=== PATIENT | female | born 1945 | race Caucasian/White ===

== ENCOUNTER 2017-04-11 16:21 | Inpatient (IN) | payer MEDICARE, OTHER ==
[~2017-04-11] VITALS: Ht 170.2 cm; Wt 78.1 kg
[~2017-04-11 16:21] MED LIST: ALBU1.25 NEB; ASPI1TAB69 PO; CEFT500T3 PO; FLUT1INH INH; METF1000 PO; OXYGENTANK NAS.CANULA; PRED20 PO; VENTAER INH; ZITH500T PO
[2017-04-11 16:25] VITALS: BP 137/80; PULSE 106; RESP 30; TEMP 98.3; O2SAT 88
--- NOTE | 2017-04-11 16:34 | PD ---
HPI Chief Complaint: shortness of breath Time Seen by Provider: 16:26 Travel History International Travel<30 days: No Contact w/Intl Traveler<30days: No Traveled to known affect area: No History of Present Illness HPI 71-year-old female with history of COPD on 2 L nasal cannula at night, diabetes , sent in by her primary care physician for shortness of breath. The patient present for the last several days she has been having increasing shortness of breath. She has had a nonproductive cough. She has not noted any fever. She is complaining of chest heaviness/tightness as well. She tried 3 albuterol nebulized treatments today at home without any improvement. No known history of cardiac disease. No history of DVT or PE. Shortness of breath is at rest, worse with exertion. PFSH Past Medical History Congestive Heart Failure: No COPD: Yes (EMPHYSEMA) Coronary Artery Disease: No Diabetes: Yes Herniated Disk: Yes Respiratory: Yes (COPD, BRONCHITIS) Pneumonia: Yes Sleep Apnea: Yes (DOES NOT WEAR CPAP AT HOME) : 1 Para: 1 Tubal Ligation: Yes Past Surgical History Tonsillectomy: Yes Other Surgery: Yes (POLYPECTOMY VIA COLONOSCOPY: 2016) Social History Alcohol Use: No Tobacco Use: Yes Substance Use: No Allergies-Medications (Allergen,Severity, Reaction): Coded Allergies: No Known Allergies (Unverified , 04/11/17) Reported Meds & Prescriptions Reported Meds & Active Scripts Active Oxygen tank (Oxygen) 1 Ea Tank 2 Liter VANIA.CANULA CONTINUOUS Oxygen Concentrator Portable Gaseous 2 L/min via Nasal Cannula Continuous For 99 months Reported Aspirin 81 Mg Chew 81 Mg CHEW DAILY Albuterol Neb (Albuterol Sulfate) 1.25 Mg/3 Ml Neb 1.25 Mg NEB Q4HR NEB PRN Metformin (Metformin HCl) 1,000 Mg Tab 1,000 Mg PO BIDPC With meals Ventolin Hfa 18 GM Inh (Albuterol Sulfate) 90 Mcg/Act Aer 2 Puff INH Q4H PRN Breo Ellipta Inh (Fluticasone/Vilanterol) 100-25 Mcg/Act Inh 1 Puff INH DAILY Use daily at the same time. Review of Systems Except as stated in HPI: all other systems reviewed are Neg Physical Exam Narrative GENERAL: Well-developed, well-nourished, moderate respiratory distress, speaking a few words at a time, pursed lip breathing. SKIN: Focused skin assessment warm/dry. HEAD: Atraumatic. Normocephalic. EYES: Pupils equal and round. No scleral icterus. No injection or drainage. ENT: Mucous membranes pink and moist. NECK: Trachea midline. No JVD. CARDIOVASCULAR: Regular rate and rhythm. RESPIRATORY: Moderate respiratory distress, speaking a few words at a time, pursed lip breathing, accessory muscle use, inspiratory and expiratory wheezes bilaterally. GASTROINTESTINAL: Abdomen soft, non-tender, nondistended. Hepatic and splenic margins not palpable. MUSCULOSKELETAL: No obvious deformities. No clubbing. No cyanosis. No edema. NEUROLOGICAL: Awake and alert. No obvious cranial nerve deficits. Motor grossly within normal limits. Normal speech. PSYCHIATRIC: Appropriate mood and affect; insight and judgment normal. Data Data Last Documented VS Vital Signs Date Time Temp Pulse Resp B/P Pulse Ox O2 Delivery O2 Flow Rate FiO2 04/11/17 18:09 22 96 Nasal Cannula 2 04/11/17 17:14 95 143/72 04/11/17 16:25 98.3 Orders Complete Blood Count With Diff (04/11/17 16:31) Comprehensive Metabolic Panel (04/11/17 16:31) B-Type Natriuretic Peptide (04/11/17 16:31) Act Partial Throm Time (Ptt) (04/11/17 16:31) Prothrombin Time / Inr (Pt) (04/11/17 16:31) Ckmb (Isoenzyme) Profile (04/11/17 16:31) Troponin I (04/11/17 16:31) Iv Access Insert/Monitor (04/11/17 16:31) Electrocardiogram (04/11/17 16:31) Ecg Monitoring (04/11/17 16:31) Oximetry (04/11/17 16:31) Oxygen Administration (04/11/17 16:31) Chest, Single Ap (04/11/17 16:31) Sodium Chloride 0.9% Flush (Ns Flush) (04/11/17 16:45) Methylprednisolone So Succ Inj (Solumedr (04/11/17 16:45) Albuterol-Ipratropium Neb (Duoneb Neb) (04/11/17 16:45) CKMB (04/11/17 16:30) CKMB% (04/11/17 16:30) Diet Regular Basic (04/11/17 Dinner) Labs Laboratory Tests Test 04/11/17 16:30 White Blood Count 12.3 TH/MM3 Red Blood Count 5.31 MIL/MM3 Hemoglobin 15.4 GM/DL Hematocrit 48.5 % Mean Corpuscular Volume 91.2 FL Mean Corpuscular Hemoglobin 29.0 PG Mean Corpuscular Hemoglobin 31.8 % Concent Red Cell Distribution Width 12.7 % Platelet Count 255 TH/MM3 Mean Platelet Volume 8.3 FL Neutrophils (%) (Auto) 56.9 % Lymphocytes (%) (Auto) 29.3 % Monocytes (%) (Auto) 5.6 % Eosinophils (%) (Auto) 7.3 % Basophils (%) (Auto) 0.9 % Neutrophils # (Auto) 7.0 TH/MM3 Lymphocytes # (Auto) 3.6 TH/MM3 Monocytes # (Auto) 0.7 TH/MM3 Eosinophils # (Auto) 0.9 TH/MM3 Basophils # (Auto) 0.1 TH/MM3 CBC Comment DIFF FINAL Differential Comment Prothrombin Time 10.3 SEC Prothromb Time International 0.9 RATIO Ratio Activated Partial 27.8 SEC Thromboplast Time Sodium Level 140 MEQ/L Potassium Level 4.4 MEQ/L Chloride Level 108 MEQ/L Carbon Dioxide Level 26.9 MEQ/L Anion Gap 5 MEQ/L Blood Urea Nitrogen 17 MG/DL Creatinine 0.92 MG/DL Estimat Glomerular Filtration 61 ML/MIN Rate Random Glucose 106 MG/DL Calcium Level 8.8 MG/DL Total Bilirubin 0.2 MG/DL Aspartate Amino Transf 38 U/L (AST/SGOT) Alanine Aminotransferase 51 U/L (ALT/SGPT) Alkaline Phosphatase 74 U/L Total Creatine Kinase 575 U/L Creatine Kinase MB 6.7 NG/ML Creatine Kinase MB % 1.2 % Troponin I LESS THAN 0.02 NG/ML B-Type Natriuretic Peptide 16 PG/ML Total Protein 7.0 GM/DL Albumin 3.8 GM/DL [facility] Medical Decision Making Medical Screen Exam Complete: Yes Emergency Medical Condition: Yes Medical Record Reviewed: Yes Differential Diagnosis COPD exacerbation, pneumonia, pneumothorax, PE, ACS Narrative Course Initial vital signs show heart rate 106, blood pressure 137/80, pulse ox 88% on room air, respiratory rate of 30 breaths per minute, oral temp of 98.3F. CBC shows WBC 12.3, hemoglobin 15.4, hematocrit 48.5, platelets 255. CMP is unremarkable. Cardiac enzymes are negative. BNP is 16. Chest x-ray: No acute cardiopulmonary abnormality. Patient was given 3 DuoNeb treatments and IV Solu-Medrol with moderate improvement in respiratory symptoms. She is still using accessory muscles for breathing. I would like to admit the patient for overnight observation for further treatment and evaluation of COPD exacerbation. She is amenable to this plan. Case discussed with [facility] hospitalist Dr. Barnes. The patient will be admitted to their service under Dr. Perez. Diagnosis Primary Impression: COPD exacerbation Admitting Information Admitting Physician Requests: Observation Lavell Negrete MD April 11, 2017 16:34
[2017-04-11] MEDS ORDERED: methylPREDNISolone SOD SUCC 125 MG/2 ML VIAL IVP ONE (16:45)
[2017-04-11] MEDS ORDERED: SODIUM CHLORIDE 0.9% FLUSH 10 ML FLUSH IVF PRN (16:45)
[2017-04-11] MEDS ORDERED: ASPI81CH CHEW (16:48)
[2017-04-11 16:49] VITALS: RESP 30; O2SAT 94
[2017-04-11] MEDS: RESP: ALBUTEROL 2.5 MG/IPRATROPIUM 0.5 MG NEB (SCH) INH ×2 (16:50→16:52)
[2017-04-11 16:55] LABS: BASOPHIL # 0.1 TH/MM3 (0-0.2); BASOPHIL % 0.9 % (0.0-2.0); EOSINOPHIL # 0.9 TH/MM3 (0-0.4); EOSINOPHIL % 7.3 % (0.0-4.0); HEMATOCRIT 48.5 % (35.0-46.0); LYMPH % 29.3 % (9.0-44.0); LYMPHOCYTE # 3.6 TH/MM3 (1.0-4.8); MEAN CELL VOLUME 91.2 FL (80.0-100.0); MEAN CORPUSCULAR HGB CONC 31.8 % (32.0-36.0); MONO % 5.6 % (0.0-8.0); NEUT % 56.9 % (16.0-70.0); PLATELET COUNT 255 TH/MM3 (150-450); RED BLOOD COUNT 5.31 MIL/MM3 (4.00-5.30); RED CELL DISTRIBUTION WIDTH 12.7 % (11.6-17.2); WHITE BLOOD COUNT 12.3 TH/MM3 (4.0-11.0)
[2017-04-11 17:10] LABS: APTT (PATIENT) 27.8 SEC (24.3-30.1); INTERNATIONAL NORMALIZED RATIO 0.9 RATIO; PROTHROMBIN TIME - PATIENT 10.3 SEC (9.8-11.6)
[2017-04-11 17:13] LABS: HEMO FLAGS DIFF FINAL
[2017-04-11 17:14] VITALS: BP 143/72; PULSE 95; RESP 20; O2SAT 95
--- NOTE | 2017-04-11 17:16 | RADHPO ---
EXAM DATE/TIME: 04/11/2017 16:35 [place] COMPARISON: CHEST SINGLE AP, November 02, 2016, 20:54. INDICATIONS : Shortness of breath. MEDICAL HISTORY : Chronic obstructive pulmonary disease. SURGICAL HISTORY : None. ENCOUNTER: Initial ACUITY: 2 days PAIN SCORE: 1/10 LOCATION: Bilateral chest FINDINGS: Portable AP view of the chest demonstrates a normal-sized cardiac silhouette. Lungs are hyperinflated . No effusion, consolidation, or pneumothorax is identified. The bones and soft tissues demonstrate n o acute finding. CONCLUSION: No acute cardiopulmonary abnormality is identified. Moises Roman MD on April 11, 2017 at 17:13 Board Certified Radiologist. This report was verified electronically.
[2017-04-11 17:20] LABS: CHLORIDE 108 MEQ/L (98-107); POTASSIUM 4.4 MEQ/L (3.5-5.1); SODIUM (NA) 140 MEQ/L (136-145)
[2017-04-11 17:28] LABS: ANION GAP 5 MEQ/L (5-15); BICARBONATE 26.9 MEQ/L (21.0-32.0); BLOOD UREA NITROGEN 17 MG/DL (7-18)
[2017-04-11 17:31] LABS: ALT (GPT) 51 U/L (10-53); AST (GOT) 38 U/L (15-37); GLOMERULAR FILTRATION RATE 61 ML/MIN (>89)
[2017-04-11 17:32] LABS: TOTAL BILIRUBIN ADULT 0.2 MG/DL (0.2-1.0)
[2017-04-11 17:34] LABS: ALKALINE PHOSPHATASE 74 U/L (45-117); CREATINE KINASE 575 U/L (26-192)
[2017-04-11 17:46] LABS: CKMB 6.7 NG/ML (0.5-3.6)
[2017-04-11 18:50] VITALS: BP 140/69; PULSE 100; RESP 20; RESP 22; O2SAT 97
[2017-04-11] MEDS ORDERED: LEVOFLOXACIN 750 MG PREMIX INJ 150 ML IV ONE (19:00)
[2017-04-11] MEDS ORDERED: ONDANSETRON HCL 4 MG/2 ML VIAL IVP PRN (19:30)
[2017-04-11] MEDS ORDERED: BISACODYL 10 MG SUPP RECTAL PRN (19:30)
[2017-04-11] MEDS ORDERED: MAGNESIUM HYDROXIDE SUSP 30 ML CUP PO PRN (19:30)
[2017-04-11] MEDS ORDERED: NALOXONE HCL 0.4 MG/ML AMP IV PRN (19:30)
[2017-04-11] MEDS ORDERED: RESP: ALBUTEROL 2.5 MG/IPRATROPIUM 0.5 MG NEB (PRN) NEB (19:30)
[2017-04-11] MEDS ORDERED: SENNOSIDES 8.6 MG TAB PO PRN (19:30)
[2017-04-11] MEDS ORDERED: SODIUM CHLORIDE 0.9% FLUSH 10 ML FLUSH IV FLUSH PRN (19:30)
[2017-04-11] MEDS ORDERED: LACTULOSE SYRUP 20 GM/30 ML CUP PO PRN (19:30)
[2017-04-11] MEDS: RESP: ALBUTEROL 2.5 MG/IPRATROPIUM 0.5 MG NEB (SCH) NEB (19:49)
[2017-04-11 19:50] VITALS: O2SAT 94
[2017-04-11 20:43] LABS: CREATINE KINASE 521 U/L (26-192)
[2017-04-11 20:55] LABS: CKMB 5.9 NG/ML (0.5-3.6)
[2017-04-11] MEDS: AZITHROMYCIN INJ 500 MG in SODIUM CHLOR 0.9% 250 ML INJ 250 ML IV SCH (20:59)
[2017-04-11] MEDS: DOCUSATE SODIUM 50 MG/SENNA 8.6 MG TAB PO SCH (21:00)
[2017-04-11] MEDS: SODIUM CHLORIDE 0.9% FLUSH 10 ML FLUSH IV FLUSH SCH (21:00)
[2017-04-11 21:30] VITALS: BP 164/86; PULSE 103; PULSE 104; RESP 20; TEMP 98.1; O2SAT 93
[2017-04-11] MEDS: HEPARIN SODIUM - SQ 10,000 UNITS/ML VIAL SQ SCH (21:45)
[2017-04-12] VITALS (9 sets, daily range): BP systolic 130–157; BP diastolic 79–91; PULSE 97–111; RESP 16–20; TEMP 97.2–99.1; O2SAT 92–96
[2017-04-12] MEDS: methylPREDNISolone SOD SUCC 125 MG/2 ML VIAL IV PUSH SCH ×5 (00:14→23:19)
[2017-04-12 02:22] LABS: CREATINE KINASE 478 U/L (26-192)
[2017-04-12 06:58] LABS: BASOPHIL # 0.1 TH/MM3 (0-0.2); BASOPHIL % 0.8 % (0.0-2.0); HEMATOCRIT 43.9 % (35.0-46.0); HEMO FLAGS DIFF FINAL; LYMPH % 13.2 % (9.0-44.0); LYMPHOCYTE # 0.9 TH/MM3 (1.0-4.8); MEAN CELL VOLUME 90.5 FL (80.0-100.0); MEAN CORPUSCULAR HEMOGLOBIN 29.9 PG (27.0-34.0); MONO % 0.7 % (0.0-8.0); NEUT % 85.3 % (16.0-70.0); PLATELET COUNT 229 TH/MM3 (150-450); RED BLOOD COUNT 4.84 MIL/MM3 (4.00-5.30)
[2017-04-12] MEDS: RESP: ALBUTEROL 2.5 MG/IPRATROPIUM 0.5 MG NEB (SCH) NEB ×4 (07:07→20:11)
[2017-04-12 07:14] LABS: POTASSIUM 4.7 MEQ/L (3.5-5.1)
[2017-04-12 07:23] LABS: BICARBONATE 29.1 MEQ/L (21.0-32.0)
[2017-04-12] MEDS: HEPARIN SODIUM - SQ 10,000 UNITS/ML VIAL SQ SCH ×2 (08:12→23:14)
[2017-04-12] MEDS: ASPIRIN 81 MG CHEW TAB CHEW SCH (08:12)
[2017-04-12] MEDS: FLUTICASONE 100 MCG/VILANTEROL 25 MCG INHALER INH SCH (08:13)
[2017-04-12] MEDS: DOCUSATE SODIUM 50 MG/SENNA 8.6 MG TAB PO SCH ×2 (08:13→23:14)
[2017-04-12] MEDS: SODIUM CHLORIDE 0.9% FLUSH 10 ML FLUSH IV FLUSH SCH ×2 (08:14→23:13)
--- NOTE | 2017-04-12 09:33 | EKG ---
Date Performed: 04/11/2017 Time Performed: 16:27:44 PTAGE: 71 years EKG: Sinus rhythm Rightward axis ST junctional depression is nonspecific Borderline ECG PREVIOUS TRACING : 11/02/2016 20.55 DOCTOR: Eddie Stevens Interpretating Date/Time 04/12/2017 09:31:25
[2017-04-12] MEDS ORDERED: ALBUTEROL SULFATE 90 MCG/ACT HFA 8 GM INHALER INH PRN (09:45)
--- NOTE | 2017-04-12 10:06 | MH ---
cc: ELIJAH URIBE MD DATE OF ADMISSION: 04/11/2017 CHIEF COMPLAINT Shortness of breath, cough, wheezing. HISTORY OF PRESENT ILLNESS This is a 71-year-old female with past medical-surgical history significant for emphysema, COPD, history of diabetes mellitus, herniated disk, history of chronic bronchitis, history of sleep apnea, history of tubal ligation, history of pneumonia in the past, history of polypectomy of the colon and tonsillectomy. She is a smoker for more than 50 years, came to the ER at [facility] complaining of shortness of breath. She said that she is having this shortness of breath for several days which is getting worse to the extent that she decided to come to [facility]. She has a nonproductive cough. She has wheezing. She denies any fever or chills. Denies any chest pain. Denies any nausea or vomiting, diarrhea, constipation. Denies any blood in stool. Denies any abdominal pain. Denies any urinary tract infection symptom or denies any neurological symptoms. She has no history of heart disease. No history of DVT or pulmonary embolism. Other than that nothing significant. PAST MEDICAL AND SURGICAL HISTORY As dictated above. SOCIAL HISTORY She smokes half pack a day for more than 50 years. Denies any alcohol or drug abuse. Lives at home alone. She is retired from the truck industry. FAMILY HISTORY Family history significant for dad had COPD. ALLERGIES NO KNOWN DRUG ALLERGIES. MEDICATIONS Include: 1. Oxygen 2 liters by nasal cannula continuous. 2. Aspirin 81 mg p.o. daily. 3. Albuterol nebulization q. 4 hours. 4. Metformin 1000 mg twice a day. 5. Ventolin HFA 90 mcg two puff inhalation q. 4-hours. 6. Breo Ellipta 100/25 one puff inhalation daily. REVIEW OF SYSTEMS Positive for cough, congestion and wheezing, feeling weak and tired and shortness of breath. All other review of systems are negative. PHYSICAL EXAMINATION GENERAL: This is a 71-year-old female sitting on the bed not in acute distress. VITAL SIGNS: Temperature is 97.3, heart rate 100, respirations 16, blood pressure 130/83, O2 saturation 92% at 2 liters nasal cannula. HEENT: Normocephalic, atraumatic. EOMI. PERRL. Oral mucosa moist. NECK: Neck is supple. No visible thyromegaly or neck mass. Trachea central. CVS: Regular rate and rhythm. RESPIRATORY: Bilateral wheezing and decreased air entry bilaterally. ABDOMEN: Soft, nontender. Bowel sounds audible. EXTREMITIES: No cyanosis or clubbing. Full range of motion of all extremities. NEURO: Awake, alert, oriented x4. No focal deficits. SKIN: Warm and dry. PSYCHE: The patient is cooperative. Mood and affect is normal. LABORATORY DATA Include CBC is totally unremarkable except for WBC count was 12.3 now it is 7.0, hemoglobin was 15.4 now it is 14.5, hematocrit 48.5 now it is 43.9, platelet count is 229 normal. BMP totally unremarkable except for GFR 62 low, blood sugar is 178 high, total creatine kinase is 575, 521 and 478. CPK MB 6.7 high, 5.9 high and 7.0, troponin-I less than 0.02 x3, total protein 7.0, albumin 3.8, BNP 16. PT is 10.3, INR 0.9, APTT 27.8. IMAGING STUDIES Chest x-ray was done and shows nothing acute. No acute cardiopulmonary abnormality. ASSESSMENT/PLAN 1. This is a 71-year female who came to the ER diagnosed with shortness of breath secondary to COPD exacerbation. The patient is on Solu-Medrol 80 mg IV q.6 hours, Zithromax 500 mg IV daily and DuoNeb nebulization every 4-hours. Continue the same management. Further recommendation per patient progress. 2. History of diabetes mellitus. ADA 1800 calorie diet. NovoLog low-dose sliding scale. Check blood sugars a.c. and h.s., will monitor blood sugar. 3. History of COPD. Continue home medication. 4. DVT prophylaxis. Heparin 5000 units subcutaneous twice a day. 5. GI prophylaxis. Protonix 40 mg p.o. daily. 6. Check CBC, CMP in the morning. 7. Smoking, advised to quit. Elijah Uribe MD EA/MICHELLE /9:32 AM /9:47 AM
[2017-04-12] MEDS: PANTOPRAZOLE SOD 40 MG DELAYED RELEASE TAB PO SCH (10:21)
[2017-04-12] MEDS: cefTRIAXone INJ 1,000 MG in SODIUM CHLORIDE 0.9% INJ 100 ML IV SCH (10:22)
[2017-04-12] MEDS: metFORMIN HCL 500 MG TAB PO SCH ×2 (10:22→17:02)
[2017-04-12] MEDS: AZITHROMYCIN INJ 500 MG in SODIUM CHLOR 0.9% 250 ML INJ 250 ML IV SCH (23:13)
[2017-04-13] VITALS (9 sets, daily range): BP systolic 128–161; BP diastolic 72–82; PULSE 79–97; RESP 18–22; TEMP 96.8–97.6; O2SAT 91–96
[2017-04-13] MEDS: TEMAZEPAM 15 MG CAP PO PRN ×2 (00:10→22:32)
[2017-04-13] MEDS: methylPREDNISolone SOD SUCC 125 MG/2 ML VIAL IV PUSH SCH ×4 (06:18→23:55)
[2017-04-13 06:37] LABS: AUTOMATED NEUTROPHIL # 13.9 TH/MM3 (1.8-7.7); BASOPHIL % 0.3 % (0.0-2.0); HEMATOCRIT 40.6 % (35.0-46.0); LYMPH % 7.1 % (9.0-44.0); LYMPHOCYTE # 1.1 TH/MM3 (1.0-4.8); MEAN CORPUSCULAR HEMOGLOBIN 30.2 PG (27.0-34.0); MEAN CORPUSCULAR HGB CONC 33.6 % (32.0-36.0); MONO % 3.5 % (0.0-8.0); NEUT % 89.1 % (16.0-70.0); PLATELET COUNT 193 TH/MM3 (150-450); RED BLOOD COUNT 4.51 MIL/MM3 (4.00-5.30); RED CELL DISTRIBUTION WIDTH 12.3 % (11.6-17.2); WHITE BLOOD COUNT 15.5 TH/MM3 (4.0-11.0)
[2017-04-13 06:44] LABS: CHLORIDE 108 MEQ/L (98-107); SODIUM (NA) 144 MEQ/L (136-145)
[2017-04-13 06:45] LABS: HEMO FLAGS DIFF FINAL
[2017-04-13 06:50] LABS: ANION GAP 6 MEQ/L (5-15); BICARBONATE 29.8 MEQ/L (21.0-32.0); BLOOD UREA NITROGEN 25 MG/DL (7-18)
[2017-04-13 06:52] LABS: GLOMERULAR FILTRATION RATE 66 ML/MIN (>89)
[2017-04-13 06:53] LABS: ALT (GPT) 51 U/L (10-53); AST (GOT) 32 U/L (15-37)
[2017-04-13 06:55] LABS: ALKALINE PHOSPHATASE 61 U/L (45-117)
[2017-04-13 06:58] LABS: TOTAL BILIRUBIN ADULT LESS THAN 0.1 MG/DL (0.2-1.0)
[2017-04-13] MEDS: RESP: ALBUTEROL 2.5 MG/IPRATROPIUM 0.5 MG NEB (SCH) NEB ×4 (07:56→19:56)
[2017-04-13] MEDS: ASPIRIN 81 MG CHEW TAB CHEW SCH (08:01)
[2017-04-13] MEDS: metFORMIN HCL 500 MG TAB PO SCH ×2 (08:01→17:00)
[2017-04-13] MEDS: DOCUSATE SODIUM 50 MG/SENNA 8.6 MG TAB PO SCH ×2 (08:01→22:32)
[2017-04-13] MEDS: HEPARIN SODIUM - SQ 10,000 UNITS/ML VIAL SQ SCH ×2 (08:02→22:33)
[2017-04-13] MEDS: PANTOPRAZOLE SOD 40 MG DELAYED RELEASE TAB PO SCH (08:02)
[2017-04-13] MEDS: SODIUM CHLORIDE 0.9% FLUSH 10 ML FLUSH IV FLUSH SCH ×2 (08:04→22:32)
[2017-04-13] MEDS: FLUTICASONE 100 MCG/VILANTEROL 25 MCG INHALER INH SCH (08:04)
--- NOTE | 2017-04-13 09:24 | HHI.PR ---
Subjective History of Present Illness Patient feel better but still SOB and have wheezing d/w RAEGAN Torres and correctional counselor/case manager Review of Systems Constitutional Constitutional: Fatigue, Weakness Pulmonary Respiratory: Coughing, Shortness of Breath, Wheezing Vitals/Results Intake & Output 04/12/17 04/12/17 04/13/17 15:00 23:00 07:00 Intake Total 840 ml 520 ml Balance 840 ml 520 ml Intake Oral 840 ml 240 ml IV Total 280 ml # Voids 9 # Bowel Movements 1 Vital Signs Vital Signs Date Time Temp Pulse Resp B/P Pulse Ox O2 Delivery O2 Flow Rate FiO2 04/13/17 08:15 Nasal Cannula 2.00 04/13/17 08:00 96.8 94 20 161/81 91 04/13/17 07:59 95 Nasal Cannula 2.00 04/13/17 04:00 97.5 80 18 128/72 95 04/13/17 00:00 97.6 95 20 142/82 95 04/12/17 20:11 92 Nasal Cannula 2.00 04/12/17 20:02 105 04/12/17 20:00 97.2 101 16 136/83 96 04/12/17 20:00 96 Nasal Cannula 2.00 04/12/17 16:00 98.0 102 16 148/91 94 04/12/17 12:00 99.1 111 16 157/87 93 CBC/BMP: 04/13/17 0530 04/13/17 0530 Lab Results Laboratory Tests Test 04/13/17 05:30 White Blood Count 15.5 TH/MM3 Red Blood Count 4.51 MIL/MM3 Hemoglobin 13.6 GM/DL Hematocrit 40.6 % Mean Corpuscular Volume 90.0 FL Mean Corpuscular Hemoglobin 30.2 PG Mean Corpuscular Hemoglobin 33.6 % Concent Red Cell Distribution Width 12.3 % Platelet Count 193 TH/MM3 Mean Platelet Volume 8.8 FL Neutrophils (%) (Auto) 89.1 % Lymphocytes (%) (Auto) 7.1 % Monocytes (%) (Auto) 3.5 % Eosinophils (%) (Auto) 0.0 % Basophils (%) (Auto) 0.3 % Neutrophils # (Auto) 13.9 TH/MM3 Lymphocytes # (Auto) 1.1 TH/MM3 Monocytes # (Auto) 0.5 TH/MM3 Eosinophils # (Auto) 0.0 TH/MM3 Basophils # (Auto) 0.0 TH/MM3 CBC Comment DIFF FINAL Differential Comment Sodium Level 144 MEQ/L Potassium Level 5.0 MEQ/L Chloride Level 108 MEQ/L Carbon Dioxide Level 29.8 MEQ/L Anion Gap 6 MEQ/L Blood Urea Nitrogen 25 MG/DL Creatinine 0.85 MG/DL Estimat Glomerular Filtration 66 ML/MIN Rate Random Glucose 186 MG/DL Calcium Level 8.6 MG/DL Total Bilirubin LESS THAN 0.1 MG/DL Aspartate Amino Transf 32 U/L (AST/SGOT) Alanine Aminotransferase 51 U/L (ALT/SGPT) Alkaline Phosphatase 61 U/L Total Protein 6.0 GM/DL Albumin 3.2 GM/DL Physical Exam General General Appearance: Well Developed, Well Nourished, No Acute Distress, Comfortable Eyes Eye Exam: Pupils Equal, Pupils Reactive, Sclera White, Extraocular Movement Intact Throat Throat Exam: Oral Mucosa [place] & Moist, Oral Pharynx Normal Neck Neck Exam: Neck Supple, Trachea Midline Pulmonary Resp Exam: Decreased Bases, Diminished Breath Sounds Resp Remarks Bilateral wheezing. Cardiology CV Exam: Regular, Normal Sinus Rhythm Gastrointestinal/Abdomen GI Exam: Soft, Non-Tender, Bowel Sounds Present Musculoskeletal MS Exam: Normal Tone Integumentary Skin Exam: Clear, Warm, Dry, Intact Extremeties Extremities Exam: No Edema Neurologic Neuro Exam: Alert, Awake, Oriented, Speech Clear, Moving All Extremities, No Focal Deficits Psychiatric Psych Exam: Appropriate Responses VTE Prophylaxis VTE Prophylaxis Meds: Heparin PUD Prophylasis PUD Prophylaxis: Protonix Assessment/Plan Assessment/Plan ASSESSMENT/PLAN 1. This is a 71-year female who came to the ER diagnosed with shortness of breath secondary to COPD exacerbation. The patient is on Solu-Medrol 60 mg IV q.6 hours, Zithromax 500 mg IV daily and rocephin 1 gm IV Daily..DuoNeb nebulization every 4-hours. Continue the same management. Further recommendation per patient progress. 2. History of diabetes mellitus. ADA 1800 calorie diet. NovoLog low-dose sliding scale. Check blood sugars a.c. and h.s., will monitor blood sugar. 3. History of COPD. Continue home medication. 4. DVT prophylaxis. Heparin 5000 units subcutaneous twice a day. 5. GI prophylaxis. Protonix 40 mg p.o. daily. 6. Check CBC, CMP in the morning. 7. Smoking, advised to quit. Discussed Condition with: Patient Elijah Perez MD Apr 13, 2017 09:24
[2017-04-13] MEDS: cefTRIAXone INJ 1,000 MG in SODIUM CHLORIDE 0.9% INJ 100 ML IV SCH (10:10)
[2017-04-13] MEDS: AZITHROMYCIN INJ 500 MG in SODIUM CHLOR 0.9% 250 ML INJ 250 ML IV SCH (22:32)
[2017-04-14] VITALS: BP 118/65; PULSE 92; RESP 18; TEMP 96.6; O2SAT 96
[2017-04-14 04:00] VITALS: BP 117/60; PULSE 71; RESP 18; TEMP 96.1; O2SAT 96
[2017-04-14 06:16] LABS: AUTOMATED NEUTROPHIL # 10.8 TH/MM3 (1.8-7.7); BASOPHIL % 0.1 % (0.0-2.0); HEMATOCRIT 39.9 % (35.0-46.0); HEMO FLAGS DIFF FINAL; LYMPH % 7.1 % (9.0-44.0); LYMPHOCYTE # 0.9 TH/MM3 (1.0-4.8); MONO % 3.1 % (0.0-8.0); NEUT % 89.7 % (16.0-70.0); PLATELET COUNT 200 TH/MM3 (150-450); RED BLOOD COUNT 4.38 MIL/MM3 (4.00-5.30); RED CELL DISTRIBUTION WIDTH 12.5 % (11.6-17.2); WHITE BLOOD COUNT 12.1 TH/MM3 (4.0-11.0)
[2017-04-14 06:30] LABS: CHLORIDE 106 MEQ/L (98-107); POTASSIUM 4.9 MEQ/L (3.5-5.1); SODIUM (NA) 142 MEQ/L (136-145)
[2017-04-14 06:34] LABS: ANION GAP 5 MEQ/L (5-15); BICARBONATE 30.8 MEQ/L (21.0-32.0)
[2017-04-14 06:35] LABS: BLOOD UREA NITROGEN 27 MG/DL (7-18)
[2017-04-14 06:37] LABS: AST (GOT) 19 U/L (15-37)
[2017-04-14 06:38] LABS: ALT (GPT) 55 U/L (10-53); GLOMERULAR FILTRATION RATE 71 ML/MIN (>89)
[2017-04-14 06:39] LABS: TOTAL BILIRUBIN ADULT 0.1 MG/DL (0.2-1.0)
[2017-04-14] MEDS: methylPREDNISolone SOD SUCC 125 MG/2 ML VIAL IV PUSH SCH (06:39)
[2017-04-14 06:40] LABS: ALKALINE PHOSPHATASE 65 U/L (45-117)
--- NOTE | 2017-04-14 07:47 | HHI.PR ---
Subjective History of Present Illness Patient feel better SOB and have wheezing improved a lot d/w RN Dianne wants to go home today ok to dc home today. Review of Systems Constitutional Constitutional: Fatigue, Weakness Pulmonary Respiratory: Coughing, Shortness of Breath, Wheezing Vitals/Results Intake & Output 04/13/17 04/13/17 04/14/17 15:00 23:00 07:00 Intake Total 950 ml 510 ml Output Total 0 ml Balance 950 ml 510 ml Intake Oral 950 ml 240 ml IV Total 270 ml Output Stool Total 0 ml # Voids 7 2 Vital Signs Vital Signs Date Time Temp Pulse Resp B/P Pulse Ox O2 Delivery O2 Flow Rate FiO2 04/14/17 04:00 96.1 71 18 117/60 96 04/14/17 00:00 96.6 92 18 118/65 96 04/13/17 20:00 97.5 97 22 142/77 92 04/13/17 20:00 92 Nasal Cannula 2.00 Humidified 04/13/17 19:56 93 Nasal Cannula 2.00 04/13/17 19:30 87 04/13/17 16:00 97.6 79 20 131/72 96 04/13/17 12:00 97.3 94 22 152/73 92 04/13/17 08:15 Nasal Cannula 2.00 04/13/17 08:00 96.8 94 20 161/81 91 04/13/17 07:59 95 Nasal Cannula 2.00 CBC/BMP: 04/14/17 0500 04/14/17 0500 Lab Results Laboratory Tests Test 04/14/17 05:00 White Blood Count 12.1 TH/MM3 Red Blood Count 4.38 MIL/MM3 Hemoglobin 13.1 GM/DL Hematocrit 39.9 % Mean Corpuscular Volume 91.0 FL Mean Corpuscular Hemoglobin 30.0 PG Mean Corpuscular Hemoglobin 33.0 % Concent Red Cell Distribution Width 12.5 % Platelet Count 200 TH/MM3 Mean Platelet Volume 8.5 FL Neutrophils (%) (Auto) 89.7 % Lymphocytes (%) (Auto) 7.1 % Monocytes (%) (Auto) 3.1 % Eosinophils (%) (Auto) 0.0 % Basophils (%) (Auto) 0.1 % Neutrophils # (Auto) 10.8 TH/MM3 Lymphocytes # (Auto) 0.9 TH/MM3 Monocytes # (Auto) 0.4 TH/MM3 Eosinophils # (Auto) 0.0 TH/MM3 Basophils # (Auto) 0.0 TH/MM3 CBC Comment DIFF FINAL Differential Comment Sodium Level 142 MEQ/L Potassium Level 4.9 MEQ/L Chloride Level 106 MEQ/L Carbon Dioxide Level 30.8 MEQ/L Anion Gap 5 MEQ/L Blood Urea Nitrogen 27 MG/DL Creatinine 0.80 MG/DL Estimat Glomerular Filtration 71 ML/MIN Rate Random Glucose 186 MG/DL Calcium Level 8.4 MG/DL Total Bilirubin 0.1 MG/DL Aspartate Amino Transf 19 U/L (AST/SGOT) Alanine Aminotransferase 55 U/L (ALT/SGPT) Alkaline Phosphatase 65 U/L Total Protein 5.7 GM/DL Albumin 3.0 GM/DL Physical Exam General General Appearance: Well Developed, Well Nourished, No Acute Distress, Comfortable Eyes Eye Exam: Pupils Equal, Pupils Reactive, Sclera White, Extraocular Movement Intact Throat Throat Exam: Oral Mucosa [place] & Moist, Oral Pharynx Normal Neck Neck Exam: Neck Supple, Trachea Midline Pulmonary Resp Exam: Decreased Bases, Diminished Breath Sounds Resp Remarks Bilateral wheezing. Cardiology CV Exam: Regular, Normal Sinus Rhythm Gastrointestinal/Abdomen GI Exam: Soft, Non-Tender, Bowel Sounds Present Musculoskeletal MS Exam: Normal Tone Integumentary Skin Exam: Clear, Warm, Dry, Intact Extremeties Extremities Exam: No Edema Neurologic Neuro Exam: Alert, Awake, Oriented, Speech Clear, Moving All Extremities, No Focal Deficits Psychiatric Psych Exam: Appropriate Responses VTE Prophylaxis VTE Prophylaxis Meds: Heparin PUD Prophylasis PUD Prophylaxis: Protonix Assessment/Plan Assessment/Plan ASSESSMENT/PLAN 1. This is a 71-year female who came to the ER diagnosed with shortness of breath secondary to COPD exacerbation. The patient is on Solu-Medrol 60 mg IV q.6 hours, Zithromax 500 mg IV daily and rocephin 1 gm IV Daily..DuoNeb nebulization every 4-hours. Continue the same management. Further recommendation per patient progress. improved a lot. 2. History of diabetes mellitus. ADA 1800 calorie diet. NovoLog low-dose sliding scale. Check blood sugars a.c. and h.s., will monitor blood sugar. 3. History of COPD. Continue home medication. 4. DVT prophylaxis. Heparin 5000 units subcutaneous twice a day. 5. GI prophylaxis. Protonix 40 mg p.o. daily. 6. Smoking, advised to quit. wants to go home today ok to dc home today. f/u with PCP/Pulmonary 1 week. condition at discharge good Activity as tolerated. Diet cardiac. Medicine see discharge medicine list. Discussed Condition with: Patient Elijah Perez MD Apr 14, 2017 07:47
[2017-04-14] MEDS ORDERED: ZITHTAB PO (07:50)
[2017-04-14] MEDS ORDERED: CEFU1TAB20 PO (07:50)
[2017-04-14] MEDS ORDERED: PRED-503 PO (07:52)
[2017-04-14] MEDS: RESP: ALBUTEROL 2.5 MG/IPRATROPIUM 0.5 MG NEB (SCH) NEB (07:54)
[2017-04-14 07:57] VITALS: O2SAT 96
[2017-04-14 08:00] VITALS: BP 149/81; PULSE 76; RESP 21; TEMP 96; O2SAT 96
== END 2017-04-14 09:53 | disposition home or self-care (01) | DRG 192 ==
LOC: PHEFT 16:21 → PHEDA 18:50 → PH3A 20:57 → OBSVTOIN 04-13 09:17
PROVIDERS: ADMIT Family Medicine; ATTEND Family Medicine
DX: J44.1 Chronic obstructive pulmonary disease with (acute) exacerbation (principal); E11.9 Type 2 diabetes mellitus without complications; F17.210 Nicotine dependence, cigarettes, uncomplicated; G47.30 Sleep apnea, unspecified; Z79.84 Long term (current) use of oral hypoglycemic drugs
CPT/HCPCS: 71010; 80048; 80053; 82550; 82552; 82948; 83880; 84484; 85025; 85610; 85730; 87040; 93005; 94640; 94664; 96374; G0378; J0456; J0696; J1644; J1956; J2930; J7050

== ENCOUNTER 2017-08-04 11:05 | Inpatient (IN) | payer MEDICARE, OTHER ==
[2017-08-04] VITALS (9 sets, daily range): BP systolic 123–152; BP diastolic 65–82; PULSE 62–101; RESP 18–28; TEMP 97.4–98.3; O2SAT 92–96
[~2017-08-04] VITALS: Ht 167.6 cm; Wt 76.6 kg
[~2017-08-04 11:05] MED LIST changes: -ASPI1TAB69 PO; +ASPI81CH CHEW; -CEFT500T3 PO; +CEFU1TAB20 PO; +PRED-503 PO; -PRED20 PO; -ZITH500T PO; +ZITHTAB PO
[2017-08-04] MEDS ORDERED: ALBU.5I NEB (11:18)
[2017-08-04] MEDS ORDERED: ASPI325T PO (11:18)
[2017-08-04] MEDS ORDERED: SODIUM CHLORIDE 0.9% FLUSH 10 ML FLUSH IVF PRN (11:30)
[2017-08-04] MEDS ORDERED: ASPIRIN 325 MG TAB PO ONE (11:30)
[2017-08-04] MEDS ORDERED: methylPREDNISolone SOD SUCC 125 MG/2 ML VIAL IV PUSH ONE (11:30)
[2017-08-04] MEDS: RESP: ALBUTEROL 2.5 MG/IPRATROPIUM 0.5 MG NEB (SCH) INH ×2 (11:35→11:40)
[2017-08-04 11:38] LABS: AUTOMATED NEUTROPHIL # 4.8 TH/MM3 (1.8-7.7); BASOPHIL # 0.1 TH/MM3 (0-0.2); BASOPHIL % 1.1 % (0.0-2.0); EOSINOPHIL # 0.5 TH/MM3 (0-0.4); EOSINOPHIL % 5.8 % (0.0-4.0); HEMATOCRIT 45.8 % (35.0-46.0); HEMO FLAGS DIFF FINAL; LYMPH % 28.7 % (9.0-44.0); LYMPHOCYTE # 2.3 TH/MM3 (1.0-4.8); MEAN CELL VOLUME 90.7 FL (80.0-100.0); MEAN CORPUSCULAR HEMOGLOBIN 29.5 PG (27.0-34.0); MEAN CORPUSCULAR HGB CONC 32.5 % (32.0-36.0); MONO % 6.3 % (0.0-8.0); NEUT % 58.1 % (16.0-70.0); PLATELET COUNT 245 TH/MM3 (150-450); RED BLOOD COUNT 5.05 MIL/MM3 (4.00-5.30); RED CELL DISTRIBUTION WIDTH 13.1 % (11.6-17.2); WHITE BLOOD COUNT 8.2 TH/MM3 (4.0-11.0)
--- NOTE | 2017-08-04 11:38 | PD ---
HPI Chief Complaint: Respiratory Distress Time Seen by Provider: 11:10 Travel History International Travel<30 days: No Contact w/Intl Traveler<30days: No Traveled to known affect area: No History of Present Illness HPI The patient was seen and examined in the presence of the nurse. This patient complains of shortness of breath. Symptoms are severe. Duration one day. Patient has severe COPD and is oxygen and nebulizer dependent. Unfortunately she continues to smoke. No alleviating factors. Symptoms seem exacerbated by her smoking. Patient has a chronic dry cough usually worse at night. She also complains of some central chest discomfort describes as a pressure and aching. It is not sharp stabbing or pleuritic. Radiates up toward the right side of her neck. She does have some pain in her chest wall and pressing on it. She thinks she strained it by coughing and breathing hard. PFSH Past Medical History Cancer: No Cardiovascular Problems: No Congestive Heart Failure: No COPD: Yes (EMPHYSEMA) Coronary Artery Disease: No Diabetes: Yes Endocrine: Yes Genitourinary: No Herniated Disk: Yes Immune Disorder: No Musculoskeletal: Yes Neurologic: No Psychiatric: No Reproductive: No Respiratory: Yes Pneumonia: Yes Sleep Apnea: Yes (DOES NOT WEAR CPAP AT HOME) ?: Not : 1 Para: 1 Tubal Ligation: Yes Past Surgical History Gynecologic Surgery: Yes (TUBES TIED) Thoracic Surgery: Yes (CHEST TUBE 30 YEARS AGO) Tonsillectomy: Yes Other Surgery: Yes (POLYPECTOMY VIA COLONOSCOPY: 2016) Social History Alcohol Use: No Tobacco Use: Yes (1/2 PPD) Substance Use: No Allergies-Medications (Allergen,Severity, Reaction): Coded Allergies: No Known Allergies (Unverified , 08/04/17) Reported Meds & Prescriptions Reported Meds & Active Scripts Active Oxygen tank (Oxygen) 1 Ea Tank 2 Liter VANIA.CANULA CONTINUOUS Oxygen Concentrator Portable Gaseous 2 L/min via Nasal Cannula Continuous For 99 months Reported Albuterol Neb (Albuterol Sulfate) 2.5 Mg/0.5 Ml Neb 2.5 Mg NEB Q4HR NEB PRN Note: The Albuterol Sulfate Inhalation Solution is concentrated and must be diluted. Read complete instructions carefully before using. Aspirin 325 Mg Tab 325 Mg PO DAILY Albuterol Neb (Albuterol Sulfate) 1.25 Mg/3 Ml Neb 1.25 Mg NEB Q4HR NEB PRN Metformin (Metformin HCl) 1,000 Mg Tab 1,000 Mg PO BIDPC With meals Ventolin Hfa 18 GM Inh (Albuterol Sulfate) 90 Mcg/Act Aer 2 Puff INH Q4H PRN Breo Ellipta Inh (Fluticasone/Vilanterol) 100-25 Mcg/Act Inh 1 Puff INH DAILY Use daily at the same time. Review of Systems General / Constitutional: No: Fever Eyes: No: Visual changes HENT: No: Headaches Cardiovascular: Positive: Chest Pain or Discomfort Respiratory: Positive: Cough, Shortness of Breath, Wheezing Gastrointestinal: No: Abdominal Pain Genitourinary: No: Dysuria Musculoskeletal: No: Pain Skin: No Rash Neurologic: No: Weakness Psychiatric: No: Depression Endocrine: No: Polydipsia Hematologic/Lymphatic: No: Easy Bruising Physical Exam Narrative GENERAL: Well-nourished, well-developed patient in respiratory distress. SKIN: Focused skin assessment reveals no rash and nodules. Skin is Warm and dry. HEAD: Atraumatic. Normocephalic. EYES: Pupils equal and round. No scleral icterus. No injection or drainage. ENT: No nasal bleeding or discharge. Mucous membranes pink and moist. NECK: Trachea midline. No JVD. CARDIOVASCULAR: Regular rate and rhythm. No murmur appreciated. RESPIRATORY: Positive accessory muscle use. Diffuse expiratory wheezing heard. No crackles. GASTROINTESTINAL: Abdomen soft, non-tender, nondistended. Hepatic and splenic margins not palpable. MUSCULOSKELETAL: No obvious deformities. No clubbing. No cyanosis. No edema. Chest wall is tender to palpation in the left sternal border NEUROLOGICAL: Awake and alert. No obvious cranial nerve deficits. Motor grossly within normal limits. Normal speech. PSYCHIATRIC: Appropriate mood and affect; insight and judgment poor . Data Data Last Documented VS Vital Signs Date Time Temp Pulse Resp B/P (MAP) Pulse Ox O2 Delivery O2 Flow Rate FiO2 08/04/17 12:01 93 Nasal Cannula 2.00 08/04/17 11:58 98.1 91 24 142/65 (90) Orders Orders Complete Blood Count With Diff (08/04/17 11:28) Basic Metabolic Panel (Bmp) (08/04/17 11:28) Act Partial Throm Time (Ptt) (08/04/17 11:28) Prothrombin Time / Inr (Pt) (08/04/17 11:28) Ckmb (Isoenzyme) Profile (08/04/17 11:28) Troponin I (08/04/17 11:28) Iv Access Insert/Monitor (08/04/17 11:28) Electrocardiogram (08/04/17 11:28) Ecg Monitoring (08/04/17 11:28) Oximetry (08/04/17 11:28) Oxygen Administration (08/04/17 11:28) Chest, Single Ap (08/04/17 11:28) Sodium Chloride 0.9% Flush (Ns Flush) (08/04/17 11:30) Methylprednisolone So Succ Inj (Solumedr (08/04/17 11:30) Albuterol-Ipratropium Neb (Duoneb Neb) (08/04/17 11:30) Aspirin (Aspirin) (08/04/17 11:30) CKMB (08/04/17 11:10) CKMB% (08/04/17 11:10) Labs Laboratory Tests Test 08/04/17 11:10 White Blood Count 8.2 TH/MM3 Red Blood Count 5.05 MIL/MM3 Hemoglobin 14.9 GM/DL Hematocrit 45.8 % Mean Corpuscular Volume 90.7 FL Mean Corpuscular Hemoglobin 29.5 PG Mean Corpuscular Hemoglobin Concent 32.5 % Red Cell Distribution Width 13.1 % Platelet Count 245 TH/MM3 Mean Platelet Volume 8.3 FL Neutrophils (%) (Auto) 58.1 % Lymphocytes (%) (Auto) 28.7 % Monocytes (%) (Auto) 6.3 % Eosinophils (%) (Auto) 5.8 % Basophils (%) (Auto) 1.1 % Neutrophils # (Auto) 4.8 TH/MM3 Lymphocytes # (Auto) 2.3 TH/MM3 Monocytes # (Auto) 0.5 TH/MM3 Eosinophils # (Auto) 0.5 TH/MM3 Basophils # (Auto) 0.1 TH/MM3 CBC Comment DIFF FINAL Differential Comment Prothrombin Time 10.6 SEC Prothromb Time International Ratio 1.0 RATIO Activated Partial Thromboplast Time 28.3 SEC Blood Urea Nitrogen 14 MG/DL Creatinine 0.72 MG/DL Random Glucose 100 MG/DL Calcium Level 8.6 MG/DL Sodium Level 140 MEQ/L Potassium Level 4.3 MEQ/L Chloride Level 105 MEQ/L Carbon Dioxide Level 27.3 MEQ/L Anion Gap 8 MEQ/L Estimat Glomerular Filtration Rate 80 ML/MIN Total Creatine Kinase 111 U/L Creatine Kinase MB 4.1 NG/ML Troponin I LESS THAN 0.02 NG/ML MDM Medical Decision Making Medical Screen Exam Complete: Yes Emergency Medical Condition: Yes Medical Record Reviewed: Yes Differential Diagnosis Differential diagnosis includes COPD, asthma, pneumonia, bronchitis, CHF, ACS Narrative Course I have reviewed the patient's electronic medical record. Patient was hospitalized April 2017 for COPD exacerbation IV placed I reviewed the EKG which shows sinus rhythm but no ST elevation or ectopy I reviewed the chest x-ray which is normal Extended cardiac monitoring shows sinus rhythm without ectopy CBC is normal Metabolic profile is normal CK is normal Troponin is normal Coagulation studies are normal I gave her series of 3 nebulizer treatments and IV Solu-Medrol, I placed her on oxygen Upon arrival she is critically ill with acute hypoxic respiratory failure due to severe COPD exacerbation. Initial saturation is 88-90% on room air After the above therapies patient is significantly improved. Still wheezing and short of breath and requiring hospitalization but no longer critical. I'm going to hospitalize her on the regular floor with oxygen and nebulizers and IV steroids and her chest pain can be evaluated as well. I've a call in to the hospitalist to discuss. Saturation on a nasal cannula is now 95% Critical Care Narrative Aggregate critical care time was 35 minutes. Time to perform other separately billable procedures was not included in the critical care time. My time did not include minutes spent treating any other patients simultaneously or on activities that did not directly contribute to the patient's treatment. The services I provided to this patient were to treat and/or prevent clinically significant deterioration that could result in: Hypoxemic brain injury, cardiac arrhythmia, cardiopulmonary arrest I provided critical care services requiring my management, as noted below: Chart data review, documentation time, medication orders and management, vital sign assessments/reviewing monitor data, ordering and reviewing lab tests, ordering and interpreting/reviewing x-rays and diagnostic studies, care of the patient and discussion of the patient with the admitting physicians. Diagnosis Primary Impression: Acute respiratory failure with hypoxia Additional Impressions: COPD exacerbation Chest pain in adult Admitting Information Admitting Physician Requests: Admit Hawk Bernard MD Aug 04, 2017 11:38
[2017-08-04 11:47] LABS: CHLORIDE 105 MEQ/L (98-107); POTASSIUM 4.3 MEQ/L (3.5-5.1); SODIUM (NA) 140 MEQ/L (136-145)
[2017-08-04 11:50] LABS: ANION GAP 8 MEQ/L (5-15); BICARBONATE 27.3 MEQ/L (21.0-32.0); BLOOD UREA NITROGEN 14 MG/DL (7-18)
[2017-08-04 11:51] LABS: APTT (PATIENT) 28.3 SEC (24.3-30.1); PROTHROMBIN TIME - PATIENT 10.6 SEC (9.8-11.6)
[2017-08-04 11:53] LABS: GLOMERULAR FILTRATION RATE 80 ML/MIN (>89)
--- NOTE | 2017-08-04 11:53 | RADRPT ---
EXAM DATE/TIME: 08/04/2017 11:37 [facility] COMPARISON: CHEST SINGLE AP, April 11, 2017, 16:35. INDICATIONS : Short of breath, chest pain. MEDICAL HISTORY : Chronic obstructive pulmonary disease. SURGICAL HISTORY : None. ENCOUNTER: Initial ACUITY: 2 days PAIN SCORE: 2/10 LOCATION: Bilateral chest FINDINGS: A single view of the chest demonstrates the lungs to be symmetrically aerated without evidence of mas s, infiltrate or effusion. The cardiomediastinal contours are unremarkable. Osseous structures are intact. CONCLUSION: No acute disease. No significant change has occurred. Brian Wang MD on August 04, 2017 at 11:52 Board Certified Radiologist. This report was verified electronically.
[2017-08-04 11:57] LABS: CREATINE KINASE 111 U/L (26-192)
[2017-08-04 12:09] LABS: CKMB 4.1 NG/ML (0.5-3.6)
[2017-08-04] MEDS ORDERED: RESP: ALBUTEROL 2.5 MG/3 ML NEB (PRN) INH (14:15)
[2017-08-04] MEDS ORDERED: SODIUM CHLORIDE 0.9% FLUSH 10 ML FLUSH IV FLUSH PRN (14:15)
[2017-08-04] MEDS ORDERED: ENOXAPARIN SODIUM 30 MG/0.3 ML SYRINGE SQ SCH (15:00)
[2017-08-04] MEDS ORDERED: DEXTROSE 50% IN WATER 50 ML VIAL(D50) IV PUSH PRN (15:45)
[2017-08-04] MEDS ORDERED: GLUCAGON 1 MG/ML VIAL OTHER PRN (15:45)
--- NOTE | 2017-08-04 15:47 | HHI.HP ---
[facility] Primary Care Physician Tony Montes De Oca MD Admission Diagnosis acute hypoxic resp failure, COPD exac,chest pain Diagnoses: Chief Complaint: sob Travel History International Travel<30 Days: No Contact w/Intl Traveler <30 Da: No Traveled to Known Affected Are: No History of Present Illness patient is a 71 year old female with known copd and home o2 She was sob for two days with increased cough and decreased activity. She used her O2 more and came to the er for further eval Updrafts in the er helped. She was admitted for copd exacerbation. Review of Systems Constitutional: DENIES: Diaphoretic episodes, Fatigue, Fever, Weight gain, Weight loss, Chills, Dizziness, Change in appetite, Night Sweats Endocrine: DENIES: Abnorml menstrual pattern, Heat/cold intolerance, Polydipsia , Polyuria, Polyphagia Eyes: DENIES: Blurred vision, Diplopia, Eye inflammation, Eye pain, Vision loss , Photosensitivity, Double Vision Ears, nose, mouth, throat: DENIES: Tinnitus, Hearing loss, Vertigo, Nasal discharge, Oral lesions, Throat pain, Hoarseness, Ear Pain, Running Nose, Epistaxis, Sinus Pain, Toothache, Odynophagia Respiratory: COMPLAINS OF: Cough, Wheezing, Sputum production, Shortness of breath, DENIES: Apneas, Snoring, Hemoptysis Cardiovascular: COMPLAINS OF: Dyspnea on Exertion, DENIES: Chest pain, Palpitations, Syncope, PND, Lower Extremity Edema, Orthopnea, Claudication Gastrointestinal: DENIES: Abdominal pain, Black stools, Bloody stools, Constipation, Diarrhea, Nausea, Vomiting, Difficulty Swallowing, Anorexia Genitourinary: DENIES: Abnormal vaginal bleeding, Dysmenorrhea, Dyspareunia, Sexual dysfunction, Urinary frequency, Urinary incontinence, Urgency, Hematuria , Dysuria, Nocturia, Vaginal discharge Musculoskeletal: DENIES: Joint pain, Muscle aches, Stiffness, Joint Swelling, Back pain, Neck pain Integumentary: DENIES: Abnormal pigmentation, Pruritus, Rash, Nail changes, Breast masses, Breast skin changes, Nipple discharge Hematologic/lymphatic: DENIES: Bruising, Lymphadenopathy Immunologic/allergic: DENIES: Eczema, Urticaria Neurologic: DENIES: Abnormal gait, Headache, Localized weakness, Paresthesias, Seizures, Speech Problems, Tremor, Poor Balance Psychiatric: DENIES: Anxiety, Confusion, Mood changes, Depression, Hallucinations, Agitation, Suicidal Ideation, Homicidal Ideation, Delusions Except as stated in HPI: all other systems reviewed are Neg Past Family Social History Past Medical History COPD DM2 Past Surgical History Tonsils chest tube due to collapsed lung BTL Reported Medications Reviewed in the EMR Allergies: Coded Allergies: No Known Allergies (Unverified , 08/04/17) Active Ordered Medications Reviewed in the EMR Family History father at 48 with VT, COPD mother 89 of reproductive ca Social History tobacco 1/2 ppd x 50 yrs no etoh lives alone Physical Exam Vital Signs Vital Signs Date Time Temp Pulse Resp B/P (MAP) Pulse Ox O2 Delivery O2 Flow Rate FiO2 08/04/17 14:44 97.4 90 22 152/74 (100) 94 08/04/17 12:01 93 Nasal Cannula 2.00 08/04/17 11:58 98.1 91 24 142/65 (90) 93 Nasal Cannula 2.00 08/04/17 11:22 98 93 Nasal Cannula 2.00 08/04/17 11:18 98.1 98 24 137/82 (100) 93 08/04/17 11:10 93 Nasal Cannula 2.00 08/04/17 11:10 93 Nasal Cannula 2.00 Physical Exam GENERAL: This is a well-nourished, well-developed patient, pursed lip breathing SKIN: No rashes, ecchymoses or lesions. Cool and dry. HEAD: Atraumatic. Normocephalic. No temporal or scalp tenderness. EYES: Pupils equal round and reactive. Extraocular motions intact. No scleral icterus. No injection or drainage. ENT: Nose without bleeding, purulent drainage or septal hematoma. Throat without erythema, tonsillar hypertrophy or exudate. Uvula midline. Airway patent. NECK: Trachea midline. No JVD or lymphadenopathy. Supple, nontender, no meningeal signs. CARDIOVASCULAR: Regular rate and rhythm without murmurs, gallops, or rubs. RESPIRATORY: bilateral wheezes, no rales, or rhonchi. GASTROINTESTINAL: Abdomen soft, non-tender, nondistended. No hepato-splenomegaly , or palpable masses. No guarding. MUSCULOSKELETAL: Extremities without clubbing, cyanosis, or edema. No joint tenderness, effusion, or edema noted. No calf tenderness. Negative Homans sign bilaterally. NEUROLOGICAL: Awake and alert. Cranial nerves II through XII intact. Motor and sensory grossly within normal limits. Five out of 5 muscle strength in all muscle groups. Normal speech. Laboratory Laboratory Tests Test 08/04/17 11:10 White Blood Count 8.2 Red Blood Count 5.05 Hemoglobin 14.9 Hematocrit 45.8 Mean Corpuscular Volume 90.7 Mean Corpuscular Hemoglobin 29.5 Mean Corpuscular Hemoglobin Concent 32.5 Red Cell Distribution Width 13.1 Platelet Count 245 Mean Platelet Volume 8.3 Neutrophils (%) (Auto) 58.1 Lymphocytes (%) (Auto) 28.7 Monocytes (%) (Auto) 6.3 Eosinophils (%) (Auto) 5.8 Basophils (%) (Auto) 1.1 Neutrophils # (Auto) 4.8 Lymphocytes # (Auto) 2.3 Monocytes # (Auto) 0.5 Eosinophils # (Auto) 0.5 Basophils # (Auto) 0.1 CBC Comment DIFF FINAL Differential Comment Prothrombin Time 10.6 Prothromb Time International Ratio 1.0 Activated Partial Thromboplast Time 28.3 Blood Urea Nitrogen 14 Creatinine 0.72 Random Glucose 100 Calcium Level 8.6 Sodium Level 140 Potassium Level 4.3 Chloride Level 105 Carbon Dioxide Level 27.3 Anion Gap 8 Estimat Glomerular Filtration Rate 80 Total Creatine Kinase 111 Creatine Kinase MB 4.1 Troponin I LESS THAN 0.02 Result Diagram: 08/04/17 1110 08/04/17 1110 Imaging Last Impressions Chest X-Ray 08/04/17 1128 Signed Impressions: Service Date/Time: Friday, August 04, 2017 11:37 - CONCLUSION: No acute disease. No significant change has occurred. Brian Wang MD Caprini VTE Risk Assessment Caprini VTE Risk Assessment: Mod/High Risk (score >= 2) Caprini Risk Assessment Model Point Value = 1 Point Value = 2 Point Value = 3 Point Value = 5 Age 41-60 Minor surgery BMI > 25 kg/m2 Swollen legs Varicose veins or History of unexplained or recurrent spontaneous Oral contraceptives or hormone replacement Sepsis (< 1 month) Serious lung disease, including pneumonia (< 1 month) Abnormal pulmonary function Acute myocardial infarction Congestive heart failure (< 1 month) History of inflammatory bowel disease Medical patient at bed rest Age 61-74 Arthroscopic surgery Major open surgery (> 45 min) Laparoscopic surgery (> 45 min) Malignancy Confined to bed (> 72 hours) Immobilizing plaster cast Central venous access Age >= 75 History of VTE Family history of VTE Factor V Leiden Prothrombin [id number] Lupus anticoagulant Anticardiolipin antibodies Elevated serum homocysteine Heparin-induced thrombocytopenia Other congenital or acquired thrombophilia Stroke (< 1 month) Elective arthroplasty Hip, pelvis, or leg fracture Acute spinal cord injury (< 1 month) Prophylaxis Regimen Total Risk Factor Score Risk Level Prophylaxis Regimen 0-1 Low Early ambulation 2 Moderate Order ONE of the following: *Sequential Compression Device (SCD) *Heparin 5000 units SQ BID 3-4 Higher Order ONE of the following medications: *Heparin 5000 units SQ TID *Enoxaparin/Lovenox 40 mg SQ daily (WT < 150 kg, CrCl > 30 mL/min) *Enoxaparin/Lovenox 30 mg SQ daily (WT < 150 kg, CrCl > 10-29 mL/min) *Enoxaparin/Lovenox 30 mg SQ BID (WT < 150 kg, CrCl > 30 mL/min) AND/OR *Sequential Compression Device (SCD) 5 or more Highest Order ONE of the following medications: *Heparin 5000 units SQ TID (Preferred with Epidurals) *Enoxaparin/Lovenox 40 mg SQ daily (WT < 150 kg, CrCl > 30 mL/min) *Enoxaparin/Lovenox 30 mg SQ daily (WT < 150 kg, CrCl > 10-29 mL/min) *Enoxaparin/Lovenox 30 mg SQ BID (WT < 150 kg, CrCl > 30 mL/min) AND *Sequential Compression Device (SCD) Assessment and Plan Problem List: (1) COPD exacerbation ICD Code: J44.1 - Chronic obstructive pulmonary disease with (acute) exacerbation Status: Acute Plan: Duonebs, IV steroids, Doxy breo (2) Diabetes ICD Code: E11.9 - Type 2 diabetes mellitus without complications Status: Acute Plan: Continue SSI, ADA diet hold metformin for now Physician Certification 2 Midnight Certification Type: Admission for Inpatient Services Order for Inpatient Services The services are ordered in accordance with Medicare regulations or non- Medicare payer requirements, as applicable. In the case of services not specified as inpatient-only, they are appropriately provided as inpatient services in accordance with the 2-midnight benchmark. Estimated LOS (days): 3 3 days is the estimated time the patient will need to remain in the hospital, assuming treatment plan goals are met and no additional complications. Post-Hospital Plan: Home Cece Iverson MD Aug 04, 2017 15:47
[2017-08-04] MEDS: INSULIN ASPART SUPPLEMENTAL SCALE SQ SCH ×2 (17:00→21:01)
[2017-08-04 17:18] LABS: BLOOD GAS BASE EXCESS 2.3 mmol/L (-2-2); BLOOD GAS CARBOXYHEMOGLOBIN 3.5 % (0-4); BLOOD GAS HCO3 27 mmol/L (22-26); BLOOD GAS METHEMOGLOBIN 1.2 % (0-2); BLOOD GAS O2 HGB SATURATION 90 % (90-100); BLOOD GAS OXYGEN CONTENT 17.8 Vol % (12.0-20.0); BLOOD GAS PCO2 49 mmHG (38-42); BLOOD GAS PO2 75 mmHG (61-120); CRITICAL VALUE NO; DRAW SITE RT RADIAL; LITER FLOW 2 L/M; NUMBER OF ARTERIAL PUNCTURES 1; OXYGEN DEVICE NASAL CANNULA; STAT NO; TEMP CORR TO 98.6; ULNAR PULSE PRESENT
[2017-08-04] MEDS: ENOXAPARIN SODIUM 40 MG/0.4 ML SYRINGE SQ SCH (17:44)
[2017-08-04] MEDS: methylPREDNISolone SOD SUCC 125 MG/2 ML VIAL IV PUSH SCH (17:44)
[2017-08-04] MEDS: RESP: ALBUTEROL 2.5 MG/IPRATROPIUM 0.5 MG NEB (SCH) NEB (19:22)
[2017-08-04] MEDS: DOXYCYCLINE HYCLATE 100 MG CAP PO SCH (20:22)
[2017-08-04] MEDS: SODIUM CHLORIDE 0.9% FLUSH 10 ML FLUSH IV FLUSH SCH (20:22)
[2017-08-05] VITALS (8 sets, daily range): BP systolic 121–151; BP diastolic 66–82; PULSE 75–83; RESP 20–26; TEMP 97.4–98.4; O2SAT 93–97
[2017-08-05] MEDS: methylPREDNISolone SOD SUCC 125 MG/2 ML VIAL IV PUSH SCH ×4 (06:17→17:25)
[2017-08-05] MEDS: RESP: ALBUTEROL 2.5 MG/IPRATROPIUM 0.5 MG NEB (SCH) NEB ×3 (07:43→19:46)
[2017-08-05] MEDS: INSULIN ASPART SUPPLEMENTAL SCALE SQ SCH ×4 (08:00→21:09)
[2017-08-05] MEDS: FLUTICASONE 100 MCG/VILANTEROL 25 MCG INHALER INH SCH (09:00)
[2017-08-05] MEDS: SODIUM CHLORIDE 0.9% FLUSH 10 ML FLUSH IV FLUSH SCH ×2 (09:50→21:10)
[2017-08-05] MEDS: ASPIRIN EC 81 MG TABEC PO SCH (09:50)
[2017-08-05] MEDS: DOXYCYCLINE HYCLATE 100 MG CAP PO SCH ×2 (09:50→21:09)
[2017-08-05] MEDS: AZITHROMYCIN 250 MG TAB PO SCH (09:50)
--- NOTE | 2017-08-05 11:23 | HHI.PR ---
Subjective Remarks Patient seen and evaluated today in follow-up for COPD exacerbation. Still short of breath and dyspneic with minimal exertion. Doing well with IV steroids and bronchodilators. No events overnight Objective Vitals Vital Signs Date Time Temp Pulse Resp B/P (MAP) Pulse Ox O2 Delivery O2 Flow Rate FiO2 08/05/17 08:00 98.4 80 20 140/67 (91) 93 08/05/17 07:45 95 Nasal Cannula 2.00 08/05/17 04:00 97.7 80 24 133/78 (96) 94 08/05/17 00:00 98.0 76 26 121/67 (85) 96 08/04/17 20:00 98.3 101 28 131/71 (91) 94 08/04/17 19:21 92 Nasal Cannula 2.00 08/04/17 16:00 97.6 62 20 142/72 (95) 95 08/04/17 15:33 95 Nasal Cannula 2.00 08/04/17 14:44 97.4 90 22 152/74 (100) 94 08/04/17 14:30 08/04/17 14:21 89 18 123/65 (84) 96 Nasal Cannula 2.00 08/04/17 12:01 93 Nasal Cannula 2.00 08/04/17 11:58 98.1 91 24 142/65 (90) 93 Nasal Cannula 2.00 08/04/17 11:22 98 93 Nasal Cannula 2.00 I/O 08/04/17 08/04/17 08/04/17 08/05/17 08/05/17 08/05/17 07:00 15:00 23:00 07:00 15:00 23:00 Intake Total 480 ml 480 ml Balance 480 ml 480 ml Intake Oral 480 ml 480 ml # Voids 4 2 # Bowel Movements 0 0 Result Diagram: 08/04/17 1110 08/04/17 1110 Objective Remarks GENERAL: This is a well-nourished, well-developed patient, in no apparent distress. CARDIOVASCULAR: Regular rate and rhythm without murmurs, gallops, or rubs. RESPIRATORY: Scattered wheezes without Rales or rhonchi GASTROINTESTINAL: Abdomen soft, non-tender, nondistended. Normal active bowel sounds MUSCULOSKELETAL: Extremities without clubbing, cyanosis, or edema. NEURO: Alert & Oriented x4 to person, place, time, situation. Moves all ext x4 A/P Problem List: (1) COPD exacerbation ICD Code: J44.1 - Chronic obstructive pulmonary disease with (acute) exacerbation Status: Acute Plan: Continue Duonebs, IV steroids, Doxy breo (2) Diabetes ICD Code: E11.9 - Type 2 diabetes mellitus without complications Status: Acute Plan: Continue SSI, ADA diet resume metformin Discharge Planning home 1-2 days pending progress Cece Iverson MD Aug 05, 2017 11:23
--- NOTE | 2017-08-05 16:25 | EKG ---
Date Performed: 08/04/2017 Time Performed: 11:10:21 PTAGE: 71 years EKG: Sinus rhythm MARKED RIGHT AXIS DEVIATION ABNORMAL ECG INTERPRETATION BASED ON A DEFAULT AGE OF 40 YEARS Compared to prior tracing no significant change PREVIOUS TRACING : 04/11/2017 16.27 DOCTOR: Horacio Javed Interpretating Date/Time 08/05/2017 16:23:30
[2017-08-05] MEDS: ENOXAPARIN SODIUM 40 MG/0.4 ML SYRINGE SQ SCH (17:25)
[2017-08-05] MEDS: metFORMIN HCL 500 MG TAB PO SCH (17:25)
[2017-08-05] MEDS ORDERED: ZOLPIDEM TARTRATE 5 MG TAB PO ONE (20:15)
[2017-08-06] VITALS: BP 151/89; PULSE 78; RESP 20; TEMP 96.4; O2SAT 94
[2017-08-06] MEDS: methylPREDNISolone SOD SUCC 125 MG/2 ML VIAL IV PUSH SCH ×3 (02:09→12:00)
[2017-08-06 04:00] VITALS: BP 154/94; PULSE 86; RESP 20; TEMP 96.9; O2SAT 96
[2017-08-06 07:35] VITALS: O2SAT 94
[2017-08-06] MEDS: RESP: ALBUTEROL 2.5 MG/IPRATROPIUM 0.5 MG NEB (SCH) NEB (07:35)
[2017-08-06 08:00] VITALS: BP 140/69; PULSE 95; RESP 20; TEMP 98.3; O2SAT 97
[2017-08-06] MEDS: INSULIN ASPART SUPPLEMENTAL SCALE SQ SCH (08:00)
[2017-08-06] MEDS: SODIUM CHLORIDE 0.9% FLUSH 10 ML FLUSH IV FLUSH SCH (09:00)
[2017-08-06] MEDS: FLUTICASONE 100 MCG/VILANTEROL 25 MCG INHALER INH SCH (09:28)
[2017-08-06] MEDS: DOXYCYCLINE HYCLATE 100 MG CAP PO SCH (09:29)
[2017-08-06] MEDS: AZITHROMYCIN 250 MG TAB PO SCH (09:29)
[2017-08-06] MEDS: ASPIRIN EC 81 MG TABEC PO SCH (09:30)
[2017-08-06] MEDS: metFORMIN HCL 500 MG TAB PO SCH (09:30)
[2017-08-06] MEDS ORDERED: PRED10PA PO (09:50)
[2017-08-06] MEDS ORDERED: DOXY100C PO (09:50)
--- NOTE | 2017-08-06 09:51 | HHI.DCPOC ---
Discharge Care Plan Diagnosis: (1) Chronic obstructive pulmonary disease with acute exacerbation Goals to Promote Your Health * To prevent worsening of your condition and complications * To maintain your health at the optimal level Directions to Meet Your Goals Take your medications as prescribed Follow your dietary instruction Follow activity as directed Keep your appointments as scheduled Take your immunizations and boosters as scheduled If your symptoms worsen call your PCP, if no PCP go to Urgent Care Center or Emergency Room Smoking is Dangerous to Your Health. Avoid second hand smoke Call the 24-hour hour crisis hotline for domestic abuse at Cece Iverson MD Aug 06, 2017 09:51
--- NOTE | 2017-08-06 09:53 | HHI.DS ---
Discharge Summary Admission Date Aug 04, 2017 at 12:46 Discharge Date: Aug 06, 2017 Admitting Diagnosis acute hypoxic resp failure, COPD exac,chest pain (1) COPD exacerbation ICD Code: J44.1 - Chronic obstructive pulmonary disease with (acute) exacerbation Status: Acute (2) Diabetes ICD Code: E11.9 - Type 2 diabetes mellitus without complications Status: Acute Procedures None Brief History - From Admission patient is a 71 year old female with known copd and home o2 She was sob for two days with increased cough and decreased activity. She used her O2 more and came to the er for further eval Updrafts in the er helped. She was admitted for copd exacerbation. CBC/BMP: 08/04/17 1110 08/04/17 1110 Significant Findings Laboratory Tests Test 08/04/17 11:10 08/04/17 17:10 Eosinophils (%) (Auto) 5.8 % (0.0-4.0) Eosinophils # (Auto) 0.5 TH/MM3 (0-0.4) Estimat Glomerular Filtration Rate 80 ML/MIN (>89) Creatine Kinase MB 4.1 NG/ML (0.5-3.6) Troponin I LESS THAN 0.02 NG/ML Blood Gas HCO3 27 mmol/L (22-26) Blood Gas Base Excess 2.3 mmol/L (-2-2) Arterial Blood pH 7.36 (7.380-7.420) Arterial Blood Partial Pressure CO2 49 mmHG (38-42) Imaging Last Impressions Chest X-Ray 08/04/17 1128 Signed Impressions: Service Date/Time: Friday, August 04, 2017 11:37 - CONCLUSION: No acute disease. No significant change has occurred. Brian Wang MD PE at Discharge GENERAL: This is a well-nourished, well-developed patient, in no apparent distress. CARDIOVASCULAR: Regular rate and rhythm without murmurs, gallops, or rubs. RESPIRATORY: Scattered wheezes without Rales or rhonchi GASTROINTESTINAL: Abdomen soft, non-tender, nondistended. Normal active bowel sounds MUSCULOSKELETAL: Extremities without clubbing, cyanosis, or edema. NEURO: Alert & Oriented x4 to person, place, time, situation. Moves all ext x4 Pt update on day of discharge Patient seen today in follow-up for COPD exacerbation. Overall improved. Doing better with breathing and at baseline. Discharge plans discussed with patient and RN Hospital Course This patient is 71 year-old female was treated for a moderate COPD exacerbation. She required IV steroids and IV antibiotics. She was improving well and had her discharge plan when she was at baseline. Pt Condition on Discharge: Good Discharge Disposition: Discharge Home Discharge Time: <= 30 minutes Discharge Instructions DIET: Follow Instructions for: As Tolerated, No Restrictions Activities you can perform: Regular-No Restrictions Follow up Referrals: PCP Follow-up - 1 Week New Medications: Prednisone (21) 10 mg tab Dose Pack (Prednisone (21) 10 mg tab Dose Pack) 10 Mg Pack 10 MG PO DIRECTED for Inflammation, #1 DSPK 0 Refills Doxycycline Hyclate (Doxycycline Hyclate) 100 Mg Cap 100 MG PO BID for Infection, #7 CAP Continued Medications: Albuterol 18 GM Inh (Ventolin Hfa 18 GM Inh) 90 Mcg/Act Aer 2 PUFF INH Q4H PRN for SHORTNESS OF BREATH, #1 INHALER 0 Refills Albuterol Neb (Albuterol Neb) 1.25 Mg/3 Ml Neb 1.25 MG NEB Q4HR NEB PRN for SHORTNESS OF BREATH, #50 NEBULE 0 Refills Albuterol Neb (Albuterol Neb) 2.5 Mg/0.5 Ml Neb 2.5 MG NEB Q4HR NEB PRN for SHORTNESS OF BREATH, EA Note: The Albuterol Sulfate Inhalation Solution is concentrated and must be diluted. Read complete instructions carefully before using. Aspirin (Aspirin) 325 Mg Tab 325 MG PO DAILY, #30 TAB 0 Refills Fluticasone-Vilanterol Inh (Breo Ellipta Inh) 100-25 Mcg/Act Inh 1 PUFF INH DAILY, #1 INHALER 0 Refills Use daily at the same time. Metformin (Metformin) 1,000 Mg Tab 1000 MG PO BIDPC for Blood Sugar Management, #60 TAB 0 Refills With meals Cece Iverson MD Aug 06, 2017 09:53
== END 2017-08-06 13:30 | disposition home or self-care (01) | DRG 190 ==
LOC: PHED 11:05 → PHEDA 12:46 → PH5A 14:32
PROVIDERS: ADMIT Hospitalist; ATTEND Hospitalist
DX: J44.1 Chronic obstructive pulmonary disease with (acute) exacerbation (principal); J96.01 Acute respiratory failure with hypoxia; E11.9 Type 2 diabetes mellitus without complications; G47.30 Sleep apnea, unspecified; F17.200 Nicotine dependence, unspecified, uncomplicated; Z79.82 Long term (current) use of aspirin; Z79.84 Long term (current) use of oral hypoglycemic drugs; Z79.899 Other long term (current) drug therapy; Z90.710 Acquired absence of both cervix and uterus
CPT/HCPCS: 36600; 71010; 80048; 82550; 82552; 82805; 82948; 84484; 85025; 85610; 85730; 87804; 93005; 94640; 94664; 96374; J1650; J1815; J2930; J7613